=== PATIENT | male | born 2000 | race Two or more races ===

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

== ENCOUNTER 2025-05-12 17:37 | Emergency (ER) | payer OTHER ==
[~2025-05-12] VITALS: Ht 170.2 cm; Wt 91.9 kg
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
[2025-05-12 18:56] VITALS: BP 129/76; TEMP 98.2
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
[2025-05-12] MEDS: HYDROcodone-ACET 5/325MG TAB PO ONE (20:33)
[2025-05-12] MEDS: HYDROcodone-ACET 5/325MG TAB ONE (20:33)
[2025-05-12 20:35] VITALS: PULSE 82; RESP 18; O2SAT 99
== END 2025-05-12 20:39 | disposition home or self-care (01) ==
LOC: ER 17:37
DX: S49.92XA Unspecified injury of left shoulder and upper arm, initial encounter (principal); S89.91XA Unspecified injury of right lower leg, initial encounter; F17.290 Nicotine dependence, other tobacco product, uncomplicated; Z98.890 Other specified postprocedural states; V86.56XA Driver of dirt bike or motor/cross bike injured in nontraffic accident, initial encounter; Y93.55 Activity, bike riding; Y92.488 Other paved roadways as the place of occurrence of the external cause; Y99.8 Other external cause status
CPT/HCPCS: 73030